=== PATIENT | male | born 1990 | race Two or more races ===

== ENCOUNTER 2018-03-14 16:53 | Emergency (ER) | payer OTHER ==
[~2018-03-14] VITALS: Ht 172.7 cm; Wt 74.8 kg
[~2018-03-14 16:53] MED LIST: ESOM20CA PO; FEXO180T81 PO
[2018-03-14 19:20] VITALS: BP 122/70
[2018-03-14] MEDS ORDERED: LIDOCAINE 1% PF 2 ML VIAL. INJ ONE (20:00)
--- NOTE | 2018-03-14 20:31 | RAD ---
Indication:DEEP KNIFE CUT TO DISTAL 4TH DIGIT. UNABLE TO REMOVE RING TECHNIQUE: 3 views of left hand COMPARISON:None FINDINGS/ impression: No acute fracture or dislocation. No radiopaque foreign body. No soft tissue abnormality. Electronically signed by: Paco Butcher DO (03/14/2018 8:28 PM) [facility]
--- NOTE | 2018-03-14 21:07 | PHYS DOC ---
Past Medical History Past Medical History: No Pertinent History Past Surgical History: No Surgical History Alcohol Use: None Drug Use: None Adult General Chief Complaint Chief Complaint: LACERATION/AVULSION HPI HPI Patient is a 27 year old male who presents to the emergency room with complaints of left fourth digit fingertip laceration. He states he was working at [employer] when he accidentally cut his finger tip with a knife. he states that his last tetanus shot was within the last 5 years. Patient states the injury happened at approximately 1700 this evening. He currently reports his pain as a 4 out of 10 on the pain scale. He did not take anything for relief of his pain. He denies any decrease in sensation, numbness, tingling, or decreased range of motion of his left hand. Review of Systems Review of Systems Constitutional: Denies fever or chills [] Musculoskeletal: Denies joint pain [] Integument: Reports laceration to the tip of the left hand fourth digit Neurologic: Denies headache, focal weakness or sensory changes [] All other systems were reviewed and found to be within normal limits, except as documented in this note. Current Medications Current Medications Current Medications Medications (Trade) Dose Ordered Sig/Annie Start Time Stop Time Status Last Admin Dose Admin Lidocaine HCl (Xylocaine-Mpf 1% 2ml Vial) 6 ml 1X ONCE 03/14/18 20:00 03/14/18 20:01 DC 03/14/18 20:55 6 ML Neomycin/ Polymyxin/ Bacitracin (Triple Antibiotic Ointment) 1 pkt 1X ONCE 03/14/18 21:30 03/14/18 21:31 DC 03/14/18 21:12 1 PKT Allergies Allergies Allergies Coded Allergies Type Severity Reaction Last Updated Verified No Known Drug Allergies 06/25/16 No Physical Exam Physical Exam Constitutional: Well developed, well nourished, no acute distress, non-toxic appearance. [] HENT: Normocephalic, atraumatic, bilateral external ears normal, nose normal. [] Eyes: PERRLA, conjunctiva normal, no discharge. [] Skin: Warm, dry, no erythema, no rash; 2 cm laceration to the tip of the lateral left fourth digit that minimally extends through the fingernail] Extremities: No tenderness, no cyanosis, no clubbing, ROM intact, no edema. [] Neurologic: Alert and oriented X 3, normal motor function, normal sensory function, no focal deficits noted. [] Psychologic: Affect normal, judgement normal, mood normal. [] Current Patient Data Vital Signs Vital Signs Date Time Temp Pulse Resp B/P (MAP) Pulse Ox O2 Delivery O2 Flow Rate FiO2 03/14/18 19:20 98.6 48 16 122/70 (87) 100 Room Air 98.6 EKG EKG [] Radiology/Procedures Radiology/Procedures Indication: laceration of left hand 4th digit [] Procedure: The patient was placed in the appropriate position and anesthesia around the 4th digit of left hand was administered, 1% LIDOCAINE was used. The area was then cleansed with a surgical scrub. The laceration was closed with 8 single interrupted sutures using 4-0 ethilon. Total repaired wound length: 2 cm The patient tolerated the procedure well Complications: none Course & Med Decision Making Course & Med Decision Making Pertinent Labs and Imaging studies reviewed. (See chart for details) Laceration of fourth digit of the left hand. Repaired as described in the procedure note above. The dressing was applied and finger was placed in a aluminum finger splint. Advised patient to have sutures removed in 10 days, wear splint until sutures are removed. Off work tomorrow. May take Tylenol and ibuprofen as needed for pain. [] Dragon Disclaimer Dragon Disclaimer This electronic medical record was generated, in whole or in part, using a voice recognition dictation system. Departure Departure Impression: Primary Impression: Laceration of finger of left hand with damage to nail Disposition: 01 HOME, SELF-CARE Condition: STABLE Referrals: UNKNOWN PCP NAME (PCP) Patient Instructions: Fingertip Laceration Additional Instructions: You may take Tylenol or ibuprofen as needed for pain. Keep the wound clean and dry, leave the dressing that was applied tonight in place for 24 hours, then he may change the dressing twice a day and as needed. Wear the aluminum finger splint until sutures are removed. Return to the ER or follow-up with your primary care doctor in 10 days to have the sutures removed. Attending Signature Attending Signature I have reviewed the PA/ORNAMENTER's note and plan of care. I was available for consultation as needed during the patient's visit in the emergency department. I agree with the clinical impression, plan, and disposition. Problem Qualifiers Primary Impression: Laceration of finger of left hand with damage to nail Encounter type: initial encounter Finger: ring finger Foreign body presence : without foreign body Qualified Codes: S61.315A - Laceration without foreign body of left ring finger with damage to nail, initial encounter CLAUDIO HONG APRN Mar 14, 2018 21:07 DIAN GONZÁLES DO Mar 15, 2018 04:32
[2018-03-14] MEDS ORDERED: NEOMY/BACITR/POLYMYXIN OINT PACKET. TP ONE (21:30)
== END 2018-03-14 21:20 | disposition home or self-care (01) ==
LOC: ER 16:53
DX: S61.215A Laceration without foreign body of left ring finger without damage to nail, initial encounter (principal); W26.0XXA Contact with knife, initial encounter; Y93.89 Activity, other specified; Y92.89 Other specified places as the place of occurrence of the external cause; Y99.8 Other external cause status
CPT/HCPCS: 12001; 73140; 99284-25